=== PATIENT | male | born 1965 | race Caucasian/White ===

== ENCOUNTER 2024-07-07 11:37 | Emergency (ER) | payer SELFPAY ==
[2024-07-07 11:41] VITALS: BP 154/100
[2024-07-07 12:52] VITALS: BP 136/100
[2024-07-07 12:54] VITALS: BMI 36.6
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
[2024-07-07] MEDS: ADACEL 0.5 ML IM (15:52)
[2024-07-07] MEDS: CLEOCIN 450 MG PO (15:52)
== END 2024-07-07 16:05 | disposition home or self-care (01) ==
LOC: EMR 11:37
PROVIDERS: EMERGENCY PHYSICIAN Emergency Medicine
DX: S01.511A Laceration without foreign body of lip, initial encounter (principal); S01.81XA Laceration without foreign body of other part of head, initial encounter; V49.40XA Driver injured in collision with unspecified motor vehicles in traffic accident, initial encounter; Z23 Encounter for immunization; F17.200 Nicotine dependence, unspecified, uncomplicated
CPT/HCPCS: 99284; 12053; 90471; 70450; 70486; 71260; 72125; 74177; 90715; Q9967

== ENCOUNTER 2025-01-24 14:28 | Emergency (ER) | payer OTHER, SELFPAY ==
[2025-01-24 14:31] VITALS: BP 158/100
[2025-01-24 15:06] VITALS: BMI 33.0
--- NOTE | 2025-01-24 15:31 | ED.GENMED ---
History of Present Illness
General
Chief Complaint: Change in Mental Status
Source: patient and family
Exam Limitations: none
Time Seen by Provider: 01/24/25 15:11
History of Present Illness
History of Present Illness:
59yoM with a history of depression presenting with his aunt for evaluation of gait disturbance. Patient was very rundown last week and fatigued. He spent most of the week in bed. He had hematuria and urinary frequency at one point which resolved
spontaneously. He believes he had a kidney stone because he also had flank pain at that time and has a history of this. He thinks he passed a stone and is no longer having any urinary symptoms. He had a fever >1 week ago but no fevers since. He
also had sunburn and believes he was bitten by a spider yesterday. He did not see a spider but felt something bite his right forearm. He woke up this morning around 4am and noticed that his gait was off. He states he was walking into [place]. His
aunt called him on the phone around noon and she was unable to understand his speech. He is currently feeling better but reports feeling 'funny in the head' with a mild headache. His gait imbalance is now only present if he changes position. No
falls, paresthesias, weakness, dizziness. He admits to drinking 3 alcoholic drinks last night. He has been under a lot of stress recently and was just evicted.
Past History
Past History
ED Past Medical History: None
ED Past Surgical History: Other
Social History
Tobacco: Smoker
Alcohol: Daily
Drug: None
Personal:
Employment: Employed
Phy Exam
General Physical Exam
General Presentation: well appearing and no apparent distress
General Skin: warm and dry
General Habitus: normal
General Mental: alert
ENT Exam
ENT Exam: normocephalic
Eye Exam
Eye Exam: PERRL, EOMI and visual narayan normal
Cardiovascular Exam
Cardiovascular Exam: regular rate/rhythm
Pulmonary Exam
Pulmonary Exam: lungs clear, no respiratory distress, no rales, no crackles, no rhonchi and no wheezing
Neurological Exam
Neurological Exam: alert, CN II-XII intact, no motor deficits, no sensory deficits, speech normal and other (Oriented to person and place. Thought it was November but able to state correct year. CN 2-12 intact. PERRL. EOMs intact. Visual narayan normal.
Speech clear. Negative drift x4. Normal finger to nose and heel to thorpe bilaterally. No gait ataxia noted.)
NIH Stroke Score
Level of Consciousness: 0 - Alert
LOC questions: 1-Answers one correctly (thought the month was November)
LOC Commands: 0-Performs both correctly
Best Gaze: 0-Normal
Visual Narayan: 0=Normal, no visual loss
Facial palsy: 0=Normal, symmetrical
Motor - Right Arm: 0=No drift 10 seconds
Motor - Left Arm: 0=No drift 10 seconds
Motor - Right Le-No drift 5 seconds
Motor - Left Le-No drift 5 seconds
Limb Ataxia: 0-Absent
Sensation: 0-Normal
Best Language: 0-No aphasia
Dysarthria: 0-Normal
Extinction and Inattention: 0-No abnormality
Total Score:: 1
Lesvia Coma Scale
Eye Opening: Spontaneous
Verbal Response: Oriented
Motor Response: Obeys Commands
GCS Total Score: 15
Skin Exam
Skin Exam: normal color and warm/dry
Psychiatric Exam
Psychiatric Exam: normal mood/affect
Course
Orders/Labs/Results
Orders:
Orders
01/24/25 15:29
Cardiac Monitoring- Treatment ONCE
0.9% Sodium Chloride 1000 ml [Nss] 1,000 ml IV BOLUS
01/24/25 15:30
Electrocardiogram (*1) Urgent
Reason for Study: Fatigue / Weakness
CT Head W/o Iv Contrast Urgent
Comment:
Reason For Exam: gait imbalance
EKG- Treatment ONCE
01/24/25 15:55
Alcohol Urgent
Complete Blood Count/With Diff Urgent
Comprehensive Metabolic Panel Urgent
Magnesium Urgent
TSH Reflex To Free T4 Urgent
Total CK [Creatine Phosphokinase] Urgent
Troponin I Urgent
01/24/25 15:56
Urinalysis Reflex To Culture Urgent
Date Specimen was Collected: 01/24/25
Time Specimen was Collected: 15:50
Abnormal Lab Results
01/24/25
15:55
RBC 4.31 L 10^6/uL
(4.70-6.10)
MCV 97.7 H fL
(80.0-94.0)
MCH 35.3 H pg
(27.0-31.0)
Chloride 109 H mmol/L
(98-107)
01/24/25 15:55
01/24/25 15:55
Vital Signs
Initial and Last Documented VS:
Initial Vital Signs
Temp Pulse Resp BP Pulse Ox
98 F 78 16 158/100 99
01/24/25 14:31 01/24/25 14:31 01/24/25 14:31 01/24/25 14:31 01/24/25 14:31
Last Documented Vital Signs
Temp Pulse Resp BP Pulse Ox
98 F 68 13 119/81 95
01/24/25 14:31 01/24/25 16:45 01/24/25 16:45 01/24/25 16:01 01/24/25 16:01
MDM/Problems Addressed
Differential Diagnosis Includes:
59yoM here with gait disturbance. Star like he was walking into wall this morning. Aunt called him this afternoon and his speech was incoherent. Now feeling better but still says head feels funny. Speech is clear on initial exam. He thought it was
November but was otherwise A&O. No objective gait ataxia noted. Differential diagnosis includes but is not limited to: alcohol use, exhaustion, CVA, toxic metabolic encephalopathy
Initial ED plan: Check cardiac labs, TSH, CK, ETOH level, EKG, UA, and CT head. IV fluid bolus.
*Pulse Oximetry
SaO2: 99
Oxygen Mode of Delivery: Room air
Patient hypoxic: no (99%)
*EKG
Interpreted by ED Provider?: Yes
EKG Intrepretation Date: 01/24/25
Heart Rate: 65
Rate: normal
Rhythm: sinus
[place]: normal axis
Interval: normal interval
QRS Pattern: normal QRS
Ischemia: no ischemia
*Critical Care Note
Total Time (30-74mins, 75-104mins- exclusive of procedures): Not Applicable
Update Note
Update Note:
Alcohol level 201 which is likely culprit of patient's symptoms. Remainder of labs unremarkable. UA bland. CT head negative for acute findings. Patient A&O on reassessment and is ambulating independently. No indication for hospitalization.
Findings discussed with patient. He appears to have poor insight into his alcohol use. Offered BCARES/resources which he declines. He was advised to f/u with PCP and ED return precautions reviewed. Aunt is transporting patient home.
ED Attending Note
-
Portions of this chart may have been created with voice recognition software.� Occasional wrong word or��sound alike� substitutions may have occurred due to the inherent limitations of voice recognition software.
Discharge Plan
Departure
Patient Disposition: Home (Routine Discharge)
Date of Disposition: 01/24/25
Time of Disposition: 17:06
Patient with high blood pressure during this ER visit?: No
Discharge Problem:
Alcohol intoxication
Instructions: Alcohol intoxication - ED discharge instructions
Prescriptions:
No Action
acetaminophen [acetaminophen] 325 mg tablet
650 mg PO Q6HPRN PRN (Reason: mild pain) Qty: 14 0RF
ibuprofen 600 mg tablet
600 mg PO Q6H PRN (Reason: pain) Qty: 14 0RF
clindamycin HCl 150 mg capsule
450 mg PO TID 5 Days Qty: 45 0RF
Referrals:
[facility] [Provider Group]
UNKNOWN - PT DOES,NOT KNOW [Family Provider]
Activity Restrictions/Additional Instructions:
Please call on Sunday to schedule a follow-up with your family doctor. Return to the ER immediately with any new or worsening symptoms.
Interventions
Interventions:
*Risk Screen - Suicide Last Done: 01/24/25 14:31
*General Assessment Last Done: 01/24/25 15:07
*Neglect/Abuse Screening Last Done: 01/24/25 14:31
*ED- Fall Risk Assessment Last Done: 01/24/25 15:07
*ED COVID-19 Vaccine History Last Done: 01/24/25 15:07
*Nursing Disposition Last Done: 01/24/25 17:19
ED- Neurological Assessment Last Done: 01/24/25 15:10
Discharge Date and Time
Discharge Date/Time: 01/24/25 17:19
Print Language: BANGLADESHI
[2025-01-24 16:00] VITALS: BP 120/84
[2025-01-24] MEDS: NSS 1000 IV (16:00)
[2025-01-24 16:01] VITALS: BP 119/81
[2025-01-24 16:08] LABS: Hematocrit 42.1 % (39.0-52.0); Hemoglobin 15.2 g/dL (13.0-18.0); Mean Corp Hgb Conc. 36.1 g/dL (33.0-37.0); Mean Corpuscular Volume 97.7 fL (80.0-94.0); Nucleated Red Blood Cells % 0 % (-); Platelet Count 182 10^3/uL (130-400); Red Cell Dist. Width 13.2 % (11.5-14.5)
[2025-01-24 16:16] LABS: Urine Character Clear (Clear)
[2025-01-24 16:32] LABS: Troponin I < 0.012 ng/ml
[2025-01-24 16:48] LABS: ALT (SGPT) 48 U/L (0-50); AST (SGOT) 44 U/L (17-59); Albumin 3.8 g/dl (3.5-5.0); Alkaline Phosphatase 76 U/L (38-126); Blood Urea Nitrogen 11 mg/dl (9-20); Calcium 8.7 mg/dl (8.4-10.2); Carbon Dioxide 24 mmol/L (22-30); Chloride 109 mmol/L (98-107); Estimated Creatinine Clearance 112 ml/min; Glucose 94 mg/dl (70-99); Magnesium 2.2 mg/dl (1.6-2.3); Potassium 3.8 mmol/L (3.5-5.1); Sodium 141 mmol/L (135-145); Total Protein 6.4 g/dl (6.3-8.2); eGFR > 60.00
== END 2025-01-24 17:19 | disposition home or self-care (01) ==
LOC: EMR 14:28
PROVIDERS: Physician Assistant; EMERGENCY PHYSICIAN Emergency Medicine
DX: F10.129 Alcohol abuse with intoxication, unspecified (principal); Y90.9 Presence of alcohol in blood, level not specified; F17.200 Nicotine dependence, unspecified, uncomplicated
CPT/HCPCS: 96360; 99284; 70450; 80053; 81003; 82077; 82550; 83735; 84443; 84484; 85025; 93005